=== PATIENT | female | born 1935 | race Caucasian/White ===

== ENCOUNTER 2016-07-14 05:56 | Emergency (ER) | payer MEDICARE, BC ==
--- NOTE | ~2016-07-14 | CR58 ---
[facility] A Service of [facility] RADIOLOGY TEXT RESULTS PATIENT: DELVIS EDEN LOCATION: [facility] : 34 UNIT #: [id number] AGE: [address]: Mario Abdullahi MD SEX: F ORDER DR: [id number] [facility] [address] [place], [place] [address] [id number] E MR#: [id number] Acc #: [id number] NAME: DELVIS EDEN : 1935 SEX: F STUDY DATE/TIME: 07/14/2016 4:06 UNIT: [facility] ROOM: STUDY DESCRIPTION: CR Cervical Spine 2 or 3 Views Attending Physician: Mario Abdullahi M.D. Ordering Physician: Deuce Day M.D. Primary Care Physician: Shruthi Rivas M.D. MEDICAL IMAGING REPORT This report is preliminary unless electronic signature is present EXAM 4 views cervical spine. Date: 07/14/2016 HISTORY 81-year-old female with pain across the shoulders for one week with a headache. Symptoms began 1 week ago. No documented injury. Arthritis. COMPARISON CT cervical spine 03/29/2015. FINDINGS Craniocervical junction is intact. Mild diminished disc height is present at C5-6, moderate diminished disc height at C6-7. Anterior and posterior osteophyte formation is present at C5-6 and C6-7. No acute cervical spine fracture or subluxation is seen. Advanced facet arthropathy is thought to be present on the right at C4-5. Dense calcification in the left mid neck likely represents carotid bulb calcification. IMPRESSION 1. No acute cervical spine findings. 2. Mild C5-6, moderate C6-7 diminished disc space height with anterior and posterior osteophyte formation at each of these levels. 3. Suspected moderately advanced facet arthropathy on the right at C4-5. Dictated by... Fern Crews M.D. THIS IS AN ELECTRONICALLY VERIFIED REPORT Fern Crews M.D. at 07/15/2016 12:10 AM [facility] A Service of [facility] RADIOLOGY TEXT RESULTS PATIENT: DELVIS EDEN LOCATION: [facility] : 34 UNIT #: [id number] AGE: [address]: Mario Abdullahi MD SEX: F ORDER DR: TD: 07/14/2016 12:21 JOB #: [id number] MEDICAL IMAGING REPORT COPY
--- NOTE | ~2016-07-14 | CT71 ---
[facility] A Service of [facility] RADIOLOGY TEXT RESULTS PATIENT: DELVIS EDEN LOCATION: [facility] : 34 UNIT #: [id number] AGE: [address]: Mario Abdullahi MD SEX: F ORDER DR: [id number] [facility] [address] [place], [place] [address] [id number] E MR#: [id number] Acc #: [id number] NAME: DELVIS EDEN : 1935 SEX: F STUDY DATE/TIME: 07/14/2016 5:36 UNIT: [facility] ROOM: STUDY DESCRIPTION: CT Head Wo Contrast Attending Physician: Mario Abdullahi M.D. Ordering Physician: Deuce Day M.D. Primary Care Physician: Shruthi Rivas M.D. MEDICAL IMAGING REPORT This report is preliminary unless electronic signature is present EXAM Head CT no contrast, 07/14/2016 INDICATION Headache since July 08. Dizzy, nausea, confusion and weakness. TECHNIQUE Noncontrast CT brain was performed. This CT exam was performed with one or more of the following radiation dose reduction techniques: automatic exposure control, adjustment of mA and/or kV according to patient size, and iterative reconstruction. COMPARISON 11/19/[address] BRAIN: There is motion degradation. Images were repeated. This was the best study possible. There is mild generalized atrophy. Sulci and ventricles are otherwise unremarkable. No midline shift. No evidence of acute intracranial hemorrhage. There is no mass, mass effect or edema to suggest acute infarct and no extraaxial fluid collections are present. Mild periventricular chronic ischemic changes are present in the white matter. Chronic lacunar infarct or prominent Virchow-Mayo space in the region of the posterior limb internal capsule on the left is unchanged. Globes intact. Bones intact. There is [id number] left maxillary sinus disease and there is mild chronic-appearing right sphenoid and ethmoid sinus disease. IMPRESSION 1. No clearly acute intracranial process. No evidence of acute intracranial hemorrhage. 2. Atrophy and mild chronic ischemic changes. [facility] A Service of [facility] RADIOLOGY TEXT RESULTS PATIENT: DELVIS EDEN LOCATION: [facility] : 34 UNIT #: [id number] AGE: [address]: Mario Abdullahi MD SEX: F ORDER DR: 3. Prominent Virchow-Mayo space in the posterior internal capsule region on the left is stable. 4. [id number]-[id number]-[id number] sinus disease. Dictated by... Ok Burnett M.D. THIS IS AN ELECTRONICALLY VERIFIED REPORT Ok Burnett M.D. at 07/14/2016 2:21 PM Sherly TD: 07/14/2016 12:40 JOB #: [id number] MEDICAL IMAGING REPORT COPY
[2016-07-14 04:06] LABS: BASOPHIL# 0.1 X10e3 (0-0.3); BASOPHIL% 0.7 % (0-2.5); DIFF IND NO; EOSINOPHIL# 0.1 X10e3 (0-0.7); EOSINOPHIL% 0.8 % (0.0-7.0); HEMATOCRIT 41.9 % (35.0-45.0); HEMOGLOBIN 13.6 gm/dL (12.0-16.0); LYMPHOCYTE# 2.2 X10e3 (1.0-3.5); LYMPHOCYTE% 25.2 % (17.0-45.0); MEAN CELL VOLUME 81.3 FL (83-96); MEAN CORPUSCULAR HEMOGLOBIN 26.5 PG (28-34); MEAN CORPUSCULAR HGB CONC 32.6 g/dL (30-36); MEAN PLATELET VOLUME 7.8 FL (6.5-11.5); MONOCYTE# 0.8 X10e3 (0-1.0); MONOCYTE% 9.5 % (3.0-12.0); NEUTROPHIL# 5.6 X10e3 (1.5-7.1); NEUTROPHIL% 63.8 % (40-75); PLATELET COUNT 306 X10e3 (140-420); RED BLOOD COUNT 5.15 X10e (3.90-5.30); RED CELL DISTRIBUTION WIDTH 16.2 % (11.0-15.5); WHITE BLOOD COUNT 8.7 X10e3 (4.0-10.5)
[2016-07-14 04:24] LABS: INR 1.9; PROTHROMBIN TIME (PATIENT) 20.6 SECONDS (9.6-11.5)
[2016-07-14 04:28] LABS: BLOOD UREA NITROGEN 13 mg/dL (9-23); BUN/CREATININE RATIO 16.25; CALCIUM SERUM 9.5 mg/dL (8.4-10.2); CARBON DIOXIDE 28 mmol/L (22-31); CHLORIDE 100 mmol/L (100-111); CREATININE SERUM 0.8 mg/dL (0.6-1.4); GLOM FILT RATE Estimated ABOVE60 mL/min (>60); GLUCOSE FASTING 110 mg/dL (70-110); SODIUM 136 mmol/L (135-145)
[~2016-07-14 05:56] MED LIST: AMBIEN10 MG PO; AMIODARONE HCL100 MG PO; AMIODARONE PO; AMOXICILLIN PO; ASPIRIN PO; BAYER ASPIRIN325 M1 PO; CARTIA XT PO; CARTIA XT240 M1 PO; COUMADIN PO; COZAAR100 MG PO; DILTIAZEM 24HR180 M2 PO; HYDROCODON-ACE1 EAC7 PO; LIPITOR PO; LIPITOR20 MG PO; MULTI VITAMIN1 EACH PO; MULTI-DAY1 TAB PO; RECLAST 55 MG/100 M IV; TRAMADOL HCL50 M1 PO; ZYLOPRIM PO; ZYLOPRIM100 MG PO
[2016-08-14] MEDS ORDERED: VITAMIN D 22000 UNIT (19:50)
[2016-08-14] MEDS ORDERED: NAPROXEN (19:52)
[2016-08-14] MEDS ORDERED: ROBAXIN (19:52)
== END 2016-07-14 07:02 | disposition home or self-care (01) ==
LOC: CED 05:56
PROVIDERS: Emergency Medicine
DX: G44.209 Tension-type headache, unspecified, not intractable (principal); I48.91 Unspecified atrial fibrillation; Z88.8 Allergy status to other drugs, medicaments and biological substances; Z91.041 Radiographic dye allergy status; Z79.899 Other long term (current) drug therapy
CPT/HCPCS: 36415; 70450; 72040; 80048; 85025; 85610; 96374; 96375; 99284; J1885; J2270; J2405

== ENCOUNTER 2016-08-14 20:11 | Emergency (ER) | payer MEDICARE, BC ==
[~2016-08-14 20:11] MED LIST changes: +NAPROXEN; +ROBAXIN; +VITAMIN D 22000 UNIT
== END 2016-08-14 21:26 | disposition home or self-care (01) ==
LOC: SED 20:11
DX: M46.1 Sacroiliitis, not elsewhere classified (principal); M54.5 Low back pain; Z91.041 Radiographic dye allergy status; Z79.899 Other long term (current) drug therapy
CPT/HCPCS: 96372; 99283; J1170

== ENCOUNTER → 2016-09-05 | Outpatient (CLI) | payer MEDICARE, BC ==
--- NOTE | ~2016-09-05 | MY11 ---
[facility] A Service of [facility] RADIOLOGY TEXT RESULTS PATIENT: DELVIS EDEN LOCATION: [facility] : 34 UNIT #: [id number] AGE: [address]: Shruthi Rivas MD SEX: F ORDER DR: [id number] [facility] [address] [place], [place] [address] [id number] O MR#: [id number] Acc #: [id number] NAME: DELVIS EDEN : 1935 SEX: F STUDY DATE/TIME: 09/05/2016 9:51 UNIT: [facility] ROOM: STUDY DESCRIPTION: MY Mammogram Screening Dig Albaro Attending Physician: Shruthi Rivas M.D. Ordering Physician: Shruthi Rivas M.D. Primary Care Physician: Shruthi Rivas M.D. MEDICAL IMAGING REPORT This report is preliminary unless electronic signature is present EXAM Screening mammogram, 09/05 INDICATION 81-year-old with no personal or family history of breast cancer. No current complaints. FINDINGS Routine digital screening views of both breasts were obtained. Study is reviewed with an FDA-approved CAD device. Comparison is made with 08/24/2015, 08/07/2014. Breast parenchyma shows scattered fibroglandular densities. No new masses or suspicious microcalcifications are seen. Benign calcifications in both breasts are stable. IMPRESSION Benign mammogram. Routine screen in one year is recommended. Patients over the age of 40 are entered into a reminder system with target due date for the next mammogram. A result letter will also be sent to the patient. BIRADS: 2 Benign Finding Dictated by... Ovi Browne Jr., M.D. THIS IS AN ELECTRONICALLY VERIFIED REPORT Ovi Browne Jr., M.D. at 09/05/2016 5:05 PM TAM/shyam TD: 09/05/2016 11:44 [facility] A Service of [facility] RADIOLOGY TEXT RESULTS PATIENT: DELVIS EDEN LOCATION: [facility] : 34 UNIT #: [id number] AGE: [address]: Shruthi Rivas MD SEX: F ORDER DR: JOSHUA #: [id number] MEDICAL IMAGING REPORT Page 1 of 1 COPY
== END | disposition home or self-care (01) ==
LOC: CWCC 09:17
DX: Z12.31 Encounter for screening mammogram for malignant neoplasm of breast (principal)
CPT/HCPCS: G0202

== ENCOUNTER 2016-12-25 09:50 | Emergency (ER) | payer MEDICARE, BC ==
[2016-12-25 10:40] LABS: PROTHROMBIN TIME (PATIENT) 23.3 SECONDS (9.5-12.4)
[2016-12-25 10:47] LABS: PARTIAL THROMBOPLASTIN TIME 36.3 SECONDS (25.6-38.1)
== END 2016-12-25 11:36 | disposition home or self-care (01) ==
LOC: SED 09:50
PROVIDERS: Nurse Practitioner
DX: L03.313 Cellulitis of chest wall (principal); I48.91 Unspecified atrial fibrillation; M10.9 Gout, unspecified; Z86.718 Personal history of other venous thrombosis and embolism; Z86.711 Personal history of pulmonary embolism; Z88.8 Allergy status to other drugs, medicaments and biological substances; Z79.01 Long term (current) use of anticoagulants
CPT/HCPCS: 36415; 85610; 85730; 99283